=== PATIENT | male | born 1935 | race Caucasian/White ===

== ENCOUNTER → 2017-07-15 | Outpatient (CLI) | payer OTHER ==
[~2017-07-15] MED LIST: ACETAMINOPHEN325 M1 PO; AMLODIPINE; ASPIRIN325 PO; ASPIRIN81 M2 PO; ATORVASTATIN CA40 MG PO; B12INJ; CALCIUM; CALCIUM 600 +1 EAC1 PO; CALCIUM 600 +1 EAC5 PO; CENTRUM SILVER1 EAC2 PO; CIPRO500 MG PO; Calcium PO; FISH OIL 1,001000 M1 PO; FISH OIL 1,001000 MG PO; FLAGYL500 MG PO; FOLIC ACID 40400 MC1; FOLIC ACID 40400 MC1 PO; FOLIC ACID 40400 MCG PO; FOLIC ACID0.8 MG PO; GLUCOSAMINE &1 EAC1; GLUCOSAMINE HC500 MG PO; GLUCOSAMINE1000 MG; GLYCOLAX POWDER17 G1 PO; IMDUR 30 MG TAB30 M1 PO; KRILL OIL 1,001 EAC1 PO; LEVOTHYROXIN0.025 MG PO; LEVOTHYROXINE0.05 MG PO; LIPITOR; LIPITOR40 MG PO; LOW DOSE ASPIRI81 M1 PO; MEGARED; MIRALAX255 GM PO; MOBIC15 MG PO; MULTIVITAMINS PO; NEXIUM; NEXIUM40 MG PO; NITROGLYCERIN0.4 MG SUBLING; NITROGLYCERIN0.6 MG; NORCO 5-325 TA1 EACH PO; NORVASC 5 MG TAB5 MG PO; OMEGA-3 KRILL1 EAC3 PO; OSTEO BI-FLEX1 EACH PO; SYNTHROID150 MCG; TYLENOL325 MG PO; VITAMIN B-12100 MCG PO; VITAMIN B-12500 MCG PO; VITAMIN C + RO500 MG; VITAMIN D2000 UNIT PO; VITAMIN D32000 UNI1 PO; VITAMIN D400 UNI1 PO; VITAMIN E400 UNIT PO; VITAMINC500 PO
[2017-07-15 09:56] LABS: ALBUMIN 3.8 g/dL (3.4-5.0); ALKALINE PHOSPHATASE 74 U/L (46-116); ANION GAP 5 mmol/L (7-16); BUN 22 mg/dL (7-18); CALCIUM 9.3 mg/dL (8.5-10.1); CHLORIDE 106 mmol/L (98-107); CHOLESTEROL 156 mg/dL (<200); CO2 31 mmol/L (21-32); CREATININE 1.2 mg/dL (0.6-1.3); GLUCOSE 103 mg/dL (70-99); HDL CHOLESTEROL 52 mg/dL (>40); LDL CHOLESTEROL 68 mg/dL (<100); SGOT 23 U/L (15-37); SGPT 32 U/L (30-65); SODIUM 142 mmol/L (136-145); TOTAL BILIRUBIN 0.4 mg/dL (<0.1-1.0); TRIGLYCERIDE 183 mg/dL (<150); VLDL 37 mg/dL (<40)
[2017-07-15 09:57] LABS: SERUM ASSESSMENT Clear
== END ==
LOC: M.LAB 09:26
PROVIDERS: Internal Medicine
DX: E78.2 Mixed hyperlipidemia (principal)

== ENCOUNTER → 2018-12-21 | Outpatient (CLI) | payer OTHER | LOC: M.MRI 06:44 | DX: M48.07 Spinal stenosis, lumbosacral region (principal) ==

== ENCOUNTER → 2019-02-10 | Outpatient (CLI) | payer OTHER | LOC: M.RAD 11:58 | DX: M47.816 Spondylosis without myelopathy or radiculopathy, lumbar region (principal); M41.86 Other forms of scoliosis, lumbar region; K59.00 Constipation, unspecified ==

== ENCOUNTER → 2019-04-09 | Outpatient (CLI) | payer OTHER | LOC: M.CT 09:11 | DX: N28.1 Cyst of kidney, acquired (principal); I25.10 Atherosclerotic heart disease of native coronary artery without angina pectoris; I70.0 Atherosclerosis of aorta; K76.89 Other specified diseases of liver; D73.89 Other diseases of spleen; M41.86 Other forms of scoliosis, lumbar region; M12.88 Other specific arthropathies, not elsewhere classified, other specified site; N40.0 Benign prostatic hyperplasia without lower urinary tract symptoms; Z90.49 Acquired absence of other specified parts of digestive tract; Z98.890 Other specified postprocedural states ==